=== PATIENT | female | born 1960 | race Caucasian/White ===

== ENCOUNTER → 2017-03-02 | Outpatient (CLI) | payer OTHER | LOC: BRMIMAGING 15:05 | PROVIDERS: ATTEND Family Medicine | DX: S32.019D Unspecified fracture of first lumbar vertebra, subsequent encounter for fracture with routine healing (principal); S32.029D Unspecified fracture of second lumbar vertebra, subsequent encounter for fracture with routine healing; S32.049D Unspecified fracture of fourth lumbar vertebra, subsequent encounter for fracture with routine healing; M43.8X5 Other specified deforming dorsopathies, thoracolumbar region | CPT/HCPCS: 72100-PO ==